=== PATIENT | male | born 2000 | race Asian ===

== ENCOUNTER 2024-10-09 17:12 | Emergency (ER) | payer BC ==
[~2024-10-09] VITALS: Ht 175.3 cm; Wt 82.0 kg
[2024-10-09 17:29] VITALS: TEMP 98.3; O2SAT 98
[2024-10-09 18:34] LABS: BASOPHILS % 0.1 % (0.0-2.0); HEMATOCRIT. 43.5 % (42.0-52.0); HEMOGLOBIN. 14.3 g/dL (14.0-18.0); LYMPHOCYTES % 9.7 % (20.0-50.0); MEAN CORPUSCULAR HEMOGLOBIN 26.2 pg (28.0-32.0); MEAN CORPUSCULAR HGB CONC 32.8 g/dL (31.0-37.0); MEAN CORPUSCULAR VOLUME 80.1 fL (80.0-94.0); MEAN PLATELET VOLUME 9.5 fl (7.4-10.4); MONOCYTES % 5.7 % (2.0-8.0); NEUTROPHILS % 84.5 % (40.0-76.0); PLATELET 235 x1000/uL (130-400); RED BLOOD CELL COUNT 5.44 mill/uL (4.7-6.1); RED CELL DISTRIBUTION WIDTH 13.1 % (11.6-14.6); WHITE BLOOD COUNT 12.8 x1000/uL (4.5-11.0)
[2024-10-09 18:38] LABS: CHLORIDE 100 mEq/L (98-107); SODIUM 133 mEq/L (136-145)
[2024-10-09 18:39] LABS: CARBON DIOXIDE 22 mEq/L (21-32)
[2024-10-09 18:40] LABS: CALCIUM 9.6 mg/dL (8.7-10.4)
[2024-10-09 18:44] LABS: CREATININE 0.9 mg/dL (0.6-1.3); GLUCOSE 85 mg/dL (70-105)
[2024-10-09 18:45] LABS: UREA NITROGEN BLOOD 10 mg/dL (9-23)
[2024-10-09 18:46] LABS: ALANINE AMINOTRANSFERASE 29 IU/L (10-49); ALBUMIN 4.8 g/dL (3.2-4.8); ASPARTATE AMINOTRANSFERASE 22 IU/L (<34); CREATINE KINASE 158 IU/L (46-171)
[2024-10-09 18:47] LABS: BILIRUBIN TOTAL 1.2 mg/dL (0.1-1.0); PROTEIN TOTAL 7.8 g/dL (6.0-8.3)
[2024-10-09] MEDS: POTASSIUM CHLORIDE 20MEQ/PACKET PO ONE (19:26)
[2024-10-09 19:28] VITALS: BP 114/63; PULSE 82; RESP 17; O2SAT 99
== END 2024-10-09 19:29 | disposition home or self-care (01) ==
LOC: ER 17:12
DX: E87.6 Hypokalemia (principal); R25.2 Cramp and spasm
CPT/HCPCS: 36415; 80053; 82550; 85025; 99291